=== PATIENT | female | born 1990 ===

== ENCOUNTER 2017-07-16 22:30 | Emergency (ER) | payer MEDICAID ==
--- NOTE | 2017-07-16 22:51 | ED PDOC ---
HPI: General Adult Time Seen by Provider: 07/16/17 22:49 Chief Complaint (Nursing): Flu-like Symptoms Chief Complaint (Provider): sore throat/bodyaches History Per: Patient (27 y/o female here with sore throat/bodyaches x 2 days. Denies any vomiting/diarrhea/fevers/chills. No ill contacts. No OTC medications prior to ED visit today.) Past Medical History Reviewed: Historical Data, Nursing Documentation, Vital Signs Vital Signs: Last Vital Signs Temp 98.5 F 07/16/17 22:38 Pulse 101 H 07/16/17 22:38 Resp 16 07/16/17 22:38 BP 135/82 07/16/17 22:38 Pulse Ox 98 07/16/17 22:51 - Medical History PMH: Denies: HIV - Family History Family History: States: No Known Family Hx - Home Medications Home Medications: Ambulatory Orders Medication Instructions Recorded Amoxicillin/Clavulanate [Augmentin 1 tab PO BID #20 tab 05/26/14 875 MG-125 MG] Ibuprofen [Motrin] 600 mg PO Q8 PRN #21 tab 07/16/17 Penicillin VK [Penicillin VK Tab] 500 mg PO QID #40 tab 07/16/17 - Allergies Allergies/Adverse Reactions: Allergies Allergy/AdvReac Type Severity Reaction Status Date / Time No Known Allergies Allergy Verified 03/22/14 04:46 Review of Systems ROS Statement: Except As Marked, All Systems Reviewed And Found Negative ENT: Positive for: Throat Pain Physical Exam - Reviewed Nursing Documentation Reviewed: Yes Vital Signs Reviewed: Yes - Physical Exam Appears: Positive for: Well, Non-toxic, No Acute Distress Head Exam: Positive for: ATRAUMATIC, NORMAL INSPECTION, NORMOCEPHALIC Skin: Positive for: Normal Color, Warm, DRY Eye Exam: Positive for: EOMI, Normal appearance, PERRL ENT: Positive for: Normal ENT Inspection Neck: Positive for: Normal, Painless ROM Cardiovascular/Chest: Positive for: Regular Rate, Rhythm Respiratory: Positive for: CNT, Normal Breath Sounds Gastrointestinal/Abdominal: Positive for: Normal Exam, Bowel Sounds, Soft Back: Positive for: Normal Inspection Extremity: Positive for: Normal ROM Neurologic/Psych: Positive for: Alert, Oriented - ECG O2 Sat by Pulse Oximetry: 98 - Progress ED Course And Treament: acetaminophen 975mg x 1 dose rapid strep pos flu a/b neg decadron 10 mg IM Disposition - Clinical Impression Clinical Impression: Strep pharyngitis - Patient ED Disposition Is Patient to be Admitted: No - Disposition Referrals: [facility] [Outside] Disposition: Routine/Home Disposition Time: 23:22 Condition: FAIR Prescriptions: Ibuprofen [Motrin] 600 mg PO Q8 PRN #21 tab PRN Reason: Pain, Moderate (4-7) Penicillin VK [Penicillin VK Tab] 500 mg PO QID #40 tab Instructions: Pharyngitis (ED) Forms: [facility] (Anguillan), [facility] ED School/Work Excuse
[2017-07-16 23:43] VITALS: BP 122/80; PULSE 90; RESP 18; TEMP 98.6; O2SAT 99
== END 2017-07-16 23:44 | disposition home or self-care (01) ==
LOC: H.ER 22:30
DX: J02.0 Streptococcal pharyngitis (principal)
CPT/HCPCS: 87430; 87804; 96372; 99281; J1100

== ENCOUNTER 2018-05-07 13:51 | Emergency (ER) | payer MEDICAID ==
[2018-05-07 13:57] VITALS: RESP 18; TEMP 98.7; O2SAT 99
[2018-05-07] MEDS ORDERED: Dexamethasone 4 mg/1 ml IM STA (14:28)
--- NOTE | 2018-05-07 15:05 | ED PDOC ---
HPI: CCC, URI, Sore Throat Time Seen by Provider: 05/07/18 14:01 Chief Complaint (Nursing): ENT Problem Chief Complaint (Provider): ENT Problem History Per: Patient History/Exam Limitations: no limitations Have you had recent travel within the past 21 days to any of the following countries: [place], [place], [place] or [place]?: No Onset/Duration Of Symptoms: Days (x1 day) Current Symptoms Are (Timing): Still Present Associated Symptoms: Sore Throat. denies: Fever, Chills, Cough, Nausea, Vomiting, Diarrhea Additional Complaint(s): Patient reports body ache, throat pain, and pain with swallowing onset, x1 day ago. Patient took Tylenol this morning but had no relief of symptoms. She has no recent travel or sick contact. Otherwise: (-) fever, (-) headache, (-) nausea, (-) vomiting, (-) diarrhea, (-) cough, (-) shortness of breath, (-) abdominal pain, (-) ear pain. PMD: No provider LMP: x3 days ago, Sunday Past Medical History Reviewed: Historical Data, Nursing Documentation, Vital Signs Vital Signs: Last Vital Signs Temp 98.7 F 05/07/18 13:55 Pulse 80 05/07/18 13:55 Resp 18 05/07/18 13:55 BP 131/89 05/07/18 13:55 Pulse Ox 99 05/07/18 13:55 - Medical History PMH: No Chronic Diseases - Surgical History Surgical History: No Surg Hx - Family History Family History: States: Unknown Family Hx - Home Medications Home Medications: Ambulatory Orders Medication Instructions Recorded Amoxicillin/Clavulanate [Augmentin 1 tab PO BID #20 tab 05/26/14 875 MG-125 MG] Ibuprofen [Motrin] 600 mg PO Q8 PRN #21 tab 07/16/17 Penicillin VK [Penicillin VK Tab] 500 mg PO QID #40 tab 07/16/17 Acetaminophen [Acetaminophen 8 650 mg PO Q8 PRN #21 tablet.er 05/07/18 Hour] RX: Amoxicillin 875 mg PO BID #14 tablet 05/07/18 RX: Naproxen 500 mg PO BID PRN #20 tab 05/07/18 - Allergies Allergies/Adverse Reactions: Allergies Allergy/AdvReac Type Severity Reaction Status Date / Time No Known Allergies Allergy Verified 05/07/18 13:55 Review of Systems ROS Statement: Except As Marked, All Systems Reviewed And Found Negative Constitutional: Negative for: Fever, Chills ENT: Positive for: Throat Pain, Other (pain on swallowing). Negative for: Ear Pain Cardiovascular: Negative for: Chest Pain Respiratory: Negative for: Cough, Shortness of Breath Gastrointestinal: Negative for: Nausea, Vomiting, Abdominal Pain, Diarrhea Musculoskeletal: Positive for: Other (body ache) Physical Exam - Reviewed Nursing Documentation Reviewed: Yes Vital Signs Reviewed: Yes - Physical Exam Comments: GENERAL APPEARANCE: Patient is awake, alert, oriented x 3, in no acute distress, non toxic appearing. SKIN: Warm, dry; (-) cyanosis. ENMT: Canals: (-) cerumen impaction. TMs: (-) bulging (-) erythema (-)effusion, (-) perforation,(-) vesicles. Frontal / maxillary sinuses : (-) tenderness. (-) TMJ tenderness. Pharynx: Clear; (+) erythema, (+) exudate bilaterally. (+) 3+ tonsillar hypertrophy. Nares patent, (-) rhinorrhea. Airway patent: (-) stridor. NECK: Supple, FROM (-) stiffness, (-) tenderness, (-) lymphadenopathy. LUNGS: clear to auscultation bilaterally, (-) wheezing, (-) rhonchi (-) rales. CARDIAC: RRR - Laboratory Results Urine POC: Negative - ECG O2 Sat by Pulse Oximetry: 99 (RA) Pulse Ox Interpretation: Normal Medical Decision Making Medical Decision Making: Initial Time: 14:15 Initial Impression: Tonsillitis Initial Plan: -- test --Amoxil 500 mg PO --Decadron 10 mg IM --Toradol 30 mg IM --Throat culture --Rapid strep group A antigen --Influenza A B 1545 Rapid Strep: Positive Influenza: Negative Upreg: negative On re-evaluation, patient reports improvement of symptoms. On exam, patient remains AAOx3, in no acute distress. Lungs clear to auscultation, cardiac RRR, repeat neuro exam shows no focal findings. Vitals stable. Lab/Diagnostic results d/w the patient in great detail. Diagnosis of strep pharyngitis/tonsillitis d/w the patient. Based on history, exam and diagnostic results, plan will be for outpatient follow up. Patient instructed to follow-up with pmd / referral provided / the clinic in 1- 2 days without fail. Advised to take medication as prescribed. Return to the emergency room at any time for any new or worsening symptoms. Patient states she fully agrees with and understands discharge instructions. States that she agrees with the plan and disposition. Verbalized and repeated discharge instructions and plan. I have given the patient opportunity to ask any additional questions. Scribe Attestation: Documented by Uriel White, acting as a scribe for Deisy Mckeon Provider Scribe Attestation: All medical record entries made by the Scribe were at my direction and personally dictated by me. I have reviewed the chart and agree that the record accurately reflects my personal performance of the history, physical exam, medical decision making, and the department course for this patient. I have also personally directed, reviewed, and agree with the discharge instructions and disposition. Disposition - Clinical Impression Clinical Impression: Strep pharyngitis, Tonsillitis with exudate - Patient ED Disposition Is Patient to be Admitted: No Counseled Patient/Family Regarding: Studies Performed, Diagnosis, Need For Followup, Rx Given - Disposition Referrals: [facility] [Outside] Russell Gonsalez MD [Staff Provider] - Disposition: Routine/Home Disposition Time: 15:45 Condition: STABLE Additional Instructions: The emergency medical care you received today was directed at your acute symptoms. If you were prescribed any medication, please fill it and take as directed. It may take several days for your symptoms to resolve. Return to the Emergency Department if your symptoms worsen, do not improve, or if you have any other problems. Please contact your doctor in 2 days for re-evaluation and follow up / or call one of the physicians/clinics you have been referred to that are listed on the Patient Visit Information form that is included in your discharge packet. Bring any paperwork you were given at discharge with you along with any medications you are taking to your follow up visit. Our treatment cannot replace ongoing medical care by a primary care provider (PCP) outside of the emergency department. Prescriptions: Acetaminophen [Acetaminophen 8 Hour] 650 mg PO Q8 PRN #21 tablet.er PRN Reason: Fever >100.4 F RX: Amoxicillin 875 mg PO BID #14 tablet RX: Naproxen 500 mg PO BID PRN #20 tab PRN Reason: Pain, Moderate (4-7) Instructions: Sore Throat in Adults, Strep Throat (DC) Forms: [employer] (Togolese) Print Language: LAO - POA Present On Arrival: None Results - Lab Results Lab Results: 05/07/18 05/07/18 15:02 15:02 Influenza Typ A,B (EIA) Negative for flu a/b Grp A Beta Strep Ag Positive H
[2018-05-07 16:06] VITALS: BP 128/80; PULSE 68
== END 2018-05-07 16:06 | disposition home or self-care (01) ==
LOC: H.ER 13:51
DX: J02.0 Streptococcal pharyngitis (principal); J03.90 Acute tonsillitis, unspecified
CPT/HCPCS: 81025; 87430; 87804; 96372; 99282; J1100; J1885

== ENCOUNTER 2018-07-08 17:26 | Emergency (ER) | payer MEDICAID ==
[2018-07-08] MEDS ORDERED: Sodium Chloride 0.9% 1,000 ML IV STA (18:26)
--- NOTE | 2018-07-08 18:29 | ED PDOC ---
HPI: Abdomen Time Seen by Provider: 07/08/18 18:00 Chief Complaint (Nursing): Abdominal Pain Chief Complaint (Provider): Abd pain History Per: Patient History/Exam Limitations: no limitations Onset/Duration Of Symptoms: Days (today) Additional Complaint(s): Pt. with abd pain R side and right back upper. No dysuria, weakness, nausea, vomit, diarrhea, hematuria, numbness, tingles, leg pain. Past Medical History Reviewed: Nursing Documentation, Vital Signs Vital Signs: Last Vital Signs Temp 98.3 F 07/08/18 17:37 Pulse 82 07/08/18 17:37 Resp 18 07/08/18 17:37 BP 124/87 07/08/18 17:37 Pulse Ox 100 07/08/18 17:37 - Medical History PMH: No Chronic Diseases Denies: HIV - Surgical History Surgical History: No Surg Hx - Family History Family History: States: Unknown Family Hx - Home Medications Home Medications: Ambulatory Orders Medication Instructions Recorded Amoxicillin/Clavulanate [Augmentin 1 tab PO BID #20 tab 05/26/14 875 MG-125 MG] Ibuprofen [Motrin] 600 mg PO Q8 PRN #21 tab 07/16/17 Penicillin VK [Penicillin VK Tab] 500 mg PO QID #40 tab 07/16/17 Acetaminophen [Acetaminophen 8 650 mg PO Q8 PRN #21 tablet.er 05/07/18 Hour] Amoxicillin 875 mg PO BID #14 tablet 05/07/18 Naproxen 500 mg PO BID PRN #20 tab 05/07/18 - Allergies Allergies/Adverse Reactions: Allergies Allergy/AdvReac Type Severity Reaction Status Date / Time No Known Allergies Allergy Verified 07/08/18 17:47 Review of Systems ROS Statement: Except As Marked, All Systems Reviewed And Found Negative Gastrointestinal: Positive for: Abdominal Pain Musculoskeletal: Positive for: Back Pain Physical Exam - Reviewed Nursing Documentation Reviewed: Yes Vital Signs Reviewed: Yes - Physical Exam Appears: Positive for: Non-toxic, No Acute Distress Head Exam: Positive for: ATRAUMATIC, NORMAL INSPECTION, NORMOCEPHALIC Skin: Positive for: Normal Color, Warm, DRY Eye Exam: Positive for: EOMI, Normal appearance, PERRL ENT: Positive for: Normal ENT Inspection Neck: Positive for: Normal, Painless ROM, Supple Cardiovascular/Chest: Positive for: Regular Rate, Rhythm Respiratory: Positive for: CNT, Normal Breath Sounds Gastrointestinal/Abdominal: Positive for: Soft, Tenderness (R lateral upper abd) Back: Positive for: R CVA Tenderness Extremity: Positive for: Normal ROM Neurologic/Psych: Positive for: Alert, Oriented - ECG O2 Sat by Pulse Oximetry: 100 Pulse Ox Interpretation: Normal - Progress ED Course And Treament: 1828: Stable. Dr. Sanchez to take over care. Disposition - Clinical Impression Clinical Impression: Abdominal pain - Patient ED Disposition Is Patient to be Admitted: Transfer of Care - Disposition Disposition Time: 18:29 Condition: STABLE Patient Signed Over To: Jerome Sanchez
--- NOTE | 2018-07-08 19:07 | ED PDOC ---
- Laboratory Results Result Diagrams: 07/08/18 18:40 07/08/18 18:40 - ECG O2 Sat by Pulse Oximetry: 100 (RA) Pulse Ox Interpretation: Normal Medical Decision Making Medical Decision Making: Time: 1899 -- Patient endorsed to me by Dr. Apodaca, pending blood work, CT and urinalysis. Time: 1917 CT RESULTS FINDINGS: LUNG BASES: The lung bases appear clear. No pleural effusions are seen. LIVER: Unremarkable. GALLBLADDER AND BILE DUCTS: The gallbladder appears within normal limits. No radioopaque gallstones are seen. No biliary ductal dilatation is evident. PANCREAS: Unremarkable. SPLEEN: Unremarkable. ADRENAL GLANDS: Unremarkable. KIDNEYS, URETERS, AND BLADDER: Punctate non-obstructing calculus is present in the mid pole of the left kidney. STOMACH AND BOWEL: Unremarkable appearance of the stomach and bowel. No evidence of bowel obstruction. No evidence suggesting enteritis or colitis. APPENDIX: No evidence of acute appendicitis on CT examination. PERITONEUM: No free fluid. No free air. LYMPH NODES: No lymphadenopathy is evident. REPRODUCTIVE: Unremarkable as visualized. VASCULATURE: No evidence of abdominal aortic aneurysm. BONES: No aggressive appearing osseous lesion. No acute osseous pathology evident. MISCELLANEOUS: Small fat-containing umbilical hernia is noted. IMPRESSION: 1. Punctate non-obstructing calculus is present in the mid pole of the left kidney. 2. Small fat-containing umbilical hernia is noted. Electronically signed on Jul 08, 2018 7:18:46 PM EST by: Tirso Malone M.D., LORRIE Certified By [employer] [facility] Fellowship Trained MRI and CT Specialist Time: 2021 -- Labs demonstrate no clinically significant abnormalities. Time: 2107 -- Discussed with patient CT findings and lab results. pt states she feels improved. Patient is stable for discharge home. UA shows UTI, will give po abx. Return precautions given. Scribe Attestation: Documented by Alyssa Mccloud, acting as a scribe for Jerome Sanchez MD. Provider Scribe Attestation: All medical record entries made by the Scribe were at my direction and personally dictated by me. I have reviewed the chart and agree that the record accurately reflects my personal performance of the history, physical exam, medical decision making, and the department course for this patient. I have also personally directed, reviewed, and agree with the discharge instructions and disposition. Disposition Counseled Patient/Family Regarding: Studies Performed, Diagnosis, Rx Given - Clinical Impression Clinical Impression: Abdominal pain, UTI (urinary tract infection) - POA Present On Arrival: None - Disposition Disposition: Routine/Home Disposition Time: 21:08 Condition: IMPROVED Additional Instructions: follow up with your doctor in clinic return to the ED with any worsening or concerning symptoms Prescriptions: Nitrofurantoin Macrocrystals [Macrobid] 100 mg PO BID #14 cap Instructions: Urinary Tract Infections in Adults Forms: [facility] (Persian)
[2018-07-08 19:53] LABS: SQUAMOUS EPITHIAL 13 /hpf (0-5); URINE AMORPHOUS SEDIMENT OCC /ul (<OCC); URINE BACTERIA RARE (<OCC); URINE BILIRUBIN NEGATIVE (NEGATIVE); URINE BLOOD NEGATIVE (NEGATIVE); URINE CLARITY CLOUDY (Clear); URINE COLOR YELLOW (YELLOW); URINE GLUCOSE (UA) NEG (NEGATIVE); URINE LEUKOCYTE ESTERASE SMALL Leu/uL (Negative); URINE PROTEIN 30 mg/dL (NEGATIVE)
[2018-07-08 19:58] LABS: BASO # 0.1 K/uL (0.0-0.2); BASO % 0.7 % (0.0-2.0); EOS # 0.1 K/uL (0.0-0.7); EOS % 1.5 % (0.0-4.0); HEMOGLOBIN 15.2 g/dL (12.0-16.0); LYMPH # 3.1 K/uL (1.0-4.3); LYMPH % 35.7 % (20.0-40.0); MEAN CELL VOLUME 94.6 fl (81.0-99.0); MEAN CORPUSCULAR HEMOGLOBIN 32.9 pg (27.0-31.0); MEAN CORPUSCULAR HGB CONC 34.8 g/dL (33.0-37.0); MEAN PLATELET VOLUME 8.7 fl (7.2-11.7); MONO # 0.5 K/uL (0.0-0.8); MONO % 6.4 % (0.0-10.0); NEUT # 4.8 K/uL (1.8-7.0); NEUT % 55.7 % (50.0-75.0); NRBC % 0.1 % (0.0-0.0); RBC 4.62 Mil/uL (3.80-5.20); RED CELL DISTRIBUTION WIDTH 12.6 % (11.5-14.5); WHITE BLOOD COUNT 8.6 K/uL (4.8-10.8)
[2018-07-08 20:04] LABS: ALB/GLOB RATIO 1.2 (1.0-2.1); ALBUMIN 4.7 g/dL (3.5-5.0); BLOOD UREA NITROGEN 11 mg/dl (7-17); CALCIUM 9.2 mg/dL (8.4-10.2); GFR NON-AFRICAN AMERICAN > 60; LIPASE 179 U/L (23-300)
[2018-07-08 20:19] LABS: ALT/SGPT 30 U/L (9-52); AST/SGOT 39 U/L (14-36)
[2018-07-08 21:34] VITALS: BP 122/80; PULSE 76; RESP 16; TEMP 97.9
--- NOTE | 2018-07-09 15:10 | CT ---
Date of service: 07/08/2018 PROCEDURE: CT Abdomen and Pelvis . HISTORY: R/O stone COMPARISON: None. TECHNIQUE: Contiguous axial images of the abdomen and pelvis without oral or intravenous contrast material. Additional 2D sagittal and coronal reformats generated. Radiation dose: Total exam DLP = 543.7 mGy-cm. This CT exam was performed using one or more of the following dose reduction techniques: Automated exposure control, adjustment of the mA and/or kV according to patient size, and/or use of iterative reconstruction technique. FINDINGS: LOWER THORAX: Unremarkable. LIVER: Unremarkable. No gross lesion or ductal dilatation. GALLBLADDER AND BILE DUCTS: Unremarkable. PANCREAS: Unremarkable. No mass. No ductal dilatation. SPLEEN: Unremarkable. No splenomegaly. ADRENALS: Unremarkable. KIDNEYS AND URETERS: Kidneys demonstrate relatively symmetric size. There appear to be at least 3 very tiny calculi seen lower pole collecting system left kidney. No evidence of hydronephrosis. BLADDER: Urinary bladder incompletely distended which may in part account for thick-walled appearance. Correlation with urinalysis to exclude cystitis. REPRODUCTIVE: Prominent left ovarian follicle or tiny ovarian cyst felt be present... APPENDIX: Normal appendix BOWEL: Evaluation of the bowel is somewhat limited due to the lack of oral contrast material. Stomach is incompletely distended which presumably accounts for slight thick-walled appearance. Visualized loops of small bowel exhibit normal contour and caliber. No evidence of acute mechanical small bowel obstruction. Stool and air seen throughout the large bowel. Diverticulosis without radiographic evidence of acute diverticulitis. PERITONEUM: Unremarkable. No fluid collection. No free air. Small fat containing umbilical hernia. The LYMPH NODES: Unremarkable. No enlarged lymph nodes. VASCULATURE: Unremarkable. No aortic aneurysm. No aortic atherosclerotic calcification or mural plaque present. BONES: No fracture or destructive lesion. OTHER FINDINGS: None. IMPRESSION: There appear to be at least 3 tiny nonobstructing calculi seen with no evidence of hydronephrosis. Prominent left ovarian follicle or tiny ovarian cyst felt be present...
[2018-07-10 02:16] VITALS: O2SAT 100
== END 2018-07-08 21:34 | disposition home or self-care (01) ==
LOC: H.ER 17:26
DX: R10.9 Unspecified abdominal pain (principal); N39.0 Urinary tract infection, site not specified
CPT/HCPCS: 74176; 80053; 81003; 81025; 83690; 85025; 96374; 99284; J1885; J7030

== ENCOUNTER 2018-08-20 14:07 | Emergency (ER) | payer MEDICAID ==
--- NOTE | 2018-08-20 14:48 | ED PDOC ---
HPI: Skin/Bite Injury Time Seen by Provider: 08/20/18 14:30 Chief Complaint (Nursing): Abnormal Skin Integrity Chief Complaint (Provider): Sunburn History Per: Patient History/Exam Limitations: no limitations Onset/Duration Of Symptoms: Days (x1) Current Symptoms Are (Timing): Still Present Additional Complaint(s): 28 year old female presents to the ED for evaluation of sunburn to her face and shoulders s/p a trip to [place] which she returned from yesterday. Patient reports while she was there, she did not use sunblock. Denies other complaints. LMP: currently PMD: Chavo Godoy Past Medical History Reviewed: Historical Data, Nursing Documentation, Vital Signs Vital Signs: Last Vital Signs Temp 98.6 F 08/20/18 14:26 Pulse 79 08/20/18 14:26 Resp 16 08/20/18 14:26 BP 134/88 08/20/18 14:26 Pulse Ox 99 08/20/18 14:26 - Medical History PMH: No Chronic Diseases - Surgical History Surgical History: No Surg Hx - Family History Family History: States: Unknown Family Hx - Social History Current smoker - smoking cessation education provided: No - Home Medications Home Medications: Ambulatory Orders Medication Instructions Recorded Amoxicillin/Clavulanate [Augmentin 1 tab PO BID #20 tab 05/26/14 875 MG-125 MG] Ibuprofen [Motrin] 600 mg PO Q8 PRN #21 tab 07/16/17 Penicillin VK [Penicillin VK Tab] 500 mg PO QID #40 tab 07/16/17 Acetaminophen [Acetaminophen 8 650 mg PO Q8 PRN #21 tablet.er 05/07/18 Hour] RX: Amoxicillin 875 mg PO BID #14 tablet 05/07/18 RX: Naproxen 500 mg PO BID PRN #20 tab 05/07/18 Nitrofurantoin Macrocrystals 100 mg PO BID #14 cap 07/08/18 [Macrobid] RX: Naproxen 500 mg PO BID PRN #20 tab 08/20/18 - Allergies Allergies/Adverse Reactions: Allergies Allergy/AdvReac Type Severity Reaction Status Date / Time No Known Allergies Allergy Verified 08/20/18 14:26 Review of Systems ROS Statement: Except As Marked, All Systems Reviewed And Found Negative Skin: Positive for: Other (sunburn to face and shoulders) Physical Exam - Reviewed Nursing Documentation Reviewed: Yes Vital Signs Reviewed: Yes - Physical Exam Comments: GENERAL APPEARANCE: Patient is awake, alert, oriented x 3, in no acute distress. Resting comfortably, on cell phone. SKIN: Diffuse erythema to upper torso, shoulders, face, and neck. Otherwise (-) blisters (-) excoriations, (-) drainage, (-) lesions, (-) skin break (-) facial edema or blisters HENT: (-) conjunctival injection. Mucous membranes moist. Airway patent (-) stridor. NECK: Supple, FROM CARDIOVASCULAR: Normal rate and rhythm CHEST: (-) rales, (-) wheezing, (-) dyspnea, (-) stridor. Breath sounds equal bilaterally. NEURO: Mental status as above. Gait: steady. Speech: clear. (-) facial asymmetry - ECG O2 Sat by Pulse Oximetry: 99 (RA) Pulse Ox Interpretation: Normal Medical Decision Making Medical Decision Making: Initial Impression: first degree sunburn Time: 1445 Initial Plan: --Patient advised to continue use of aloe vera at home and will be discharged with anti-inflammatory meds. Vitals stable. Based on history, exam and diagnostic results, plan will be for outpatient follow up. Patient instructed to follow-up with pmd / referral provided / the clinic in 1- 2 days without fail. Advised to take medication as prescribed. Return to the emergency room at any time for any new or worsening symptoms. Patient states she fully agrees with and understands discharge instructions. States that she agrees with the plan and disposition. Verbalized and repeated discharge instructions and plan. I have given the patient opportunity to ask any additional questions. Scribe Attestation: Documented by Lo Nieves, acting as a scribe for Deisy Campa PA-C. Provider Scribe Attestation: All medical record entries made by the Scribe were at my direction and personally dictated by me. I have reviewed the chart and agree that the record accurately reflects my personal performance of the history, physical exam, medical decision making, and the department course for this patient. I have also personally directed, reviewed, and agree with the discharge instructions and disposition. Disposition - Clinical Impression Clinical Impression: Sunburn of first degree - Patient ED Disposition Is Patient to be Admitted: No Counseled Patient/Family Regarding: Studies Performed, Diagnosis, Need For Followup, Rx Given - Disposition Referrals: Chavo Godoy MD [Family Provider] - Disposition: Routine/Home Disposition Time: 14:50 Condition: STABLE Additional Instructions: The emergency medical care you received today was directed at your acute symptoms. If you were prescribed any medication, please fill it and take as directed. It may take several days for your symptoms to resolve. Return to the Emergency Department if your symptoms worsen, do not improve, or if you have any other problems. Please contact your doctor in 2 days for re-evaluation and follow up / or call one of the physicians/clinics you have been referred to that are listed on the Patient Visit Information form that is included in your discharge packet. Bring any paperwork you were given at discharge with you along with any medications y ou are taking to your follow up visit. Our treatment cannot replace ongoing medical care by a primary care provider (PCP) outside of the emergency department. Prescriptions: RX: Naproxen 500 mg PO BID PRN #20 tab PRN Reason: Pain, Moderate (4-7) Instructions: Sunburn Forms: [employer] [facility] (Yoruba) Print Language: SCOTTISH - POA Present On Arrival: None
[2018-08-20] MEDS: Naproxen 500 MG TAB PO STA (15:25)
[2018-08-20] MEDS ORDERED: Naproxen 500 MG TAB PO ONE (15:26)
[2018-08-20 15:48] VITALS: BP 130/78; PULSE 76; RESP 18; TEMP 98.1
[2018-08-23 13:35] VITALS: O2SAT 99
== END 2018-08-20 15:47 | disposition home or self-care (01) ==
LOC: H.ER 14:07
DX: L55.0 Sunburn of first degree (principal)

== ENCOUNTER 2018-10-23 19:45 | Emergency (ER) | payer SELFPAY ==
[2018-10-23 20:26] VITALS: BP 132/90; PULSE 75; RESP 16; TEMP 98; O2SAT 100
--- NOTE | 2018-10-23 21:36 | ED PDOC ---
HPI: General Adult Time Seen by Provider: 10/23/18 21:30 Chief Complaint (Nursing): Abnormal Skin Integrity Chief Complaint (Provider): Abnormal Skin Integrity History Per: Patient History/Exam Limitations: no limitations Onset/Duration Of Symptoms: Days (x3) Current Symptoms Are (Timing): Still Present Additional Complaint(s): Patient is a 28 y/o female with no significant PMHx who presents to the ED for evaluation of blisters to the right ankle and left thumb onset three days ago. Patient was walking in [place] when she developed itchiness to her ankle and hand which has now become blisters. Patient denies fever and chills. PCP: Dr. Chavo Godoy Past Medical History Reviewed: Historical Data, Nursing Documentation, Vital Signs Vital Signs: Last Vital Signs Temp 98.0 F 10/23/18 20:24 Pulse 75 10/23/18 20:24 Resp 16 10/23/18 20:24 BP 132/90 10/23/18 20:24 Pulse Ox 100 10/23/18 20:24 - Medical History PMH: No Chronic Diseases Denies: HIV - Surgical History Surgical History: No Surg Hx - Family History Family History: States: Unknown Family Hx - Home Medications Home Medications: Ambulatory Orders Medication Instructions Recorded Amoxicillin/Clavulanate [Augmentin 1 tab PO BID #20 tab 05/26/14 875 MG-125 MG] Ibuprofen [Motrin] 600 mg PO Q8 PRN #21 tab 07/16/17 Penicillin VK [Penicillin VK Tab] 500 mg PO QID #40 tab 07/16/17 Acetaminophen [Acetaminophen 8 650 mg PO Q8 PRN #21 tablet.er 05/07/18 Hour] Amoxicillin 875 mg PO BID #14 tablet 05/07/18 Naproxen 500 mg PO BID PRN #20 tab 05/07/18 Nitrofurantoin Macrocrystals 100 mg PO BID #14 cap 07/08/18 [Macrobid] Naproxen 500 mg PO BID PRN #20 tab 08/20/18 Clindamycin [Cleocin] 1 tab PO QID #28 cap 10/23/18 DiphenhydrAMINE [Benadryl] 50 mg PO Q6 PRN #24 cap 10/23/18 - Allergies Allergies/Adverse Reactions: Allergies Allergy/AdvReac Type Severity Reaction Status Date / Time No Known Allergies Allergy Verified 10/23/18 20:24 Review of Systems ROS Statement: Except As Marked, All Systems Reviewed And Found Negative Constitutional: Negative for: Fever, Chills Musculoskeletal: Positive for: Other (blisters to left thumb and right ankle) Physical Exam - Reviewed Nursing Documentation Reviewed: Yes Vital Signs Reviewed: Yes - Physical Exam Appears: Positive for: No Acute Distress Head Exam: Positive for: ATRAUMATIC, NORMAL INSPECTION, NORMOCEPHALIC Skin: Positive for: Normal Color, Warm, DRY Eye Exam: Positive for: EOMI, Normal appearance, PERRL Neck: Positive for: Normal, Painless ROM, Supple Cardiovascular/Chest: Positive for: Regular Rate, Rhythm. Negative for: Murmur Respiratory: Positive for: Normal Breath Sounds. Negative for: Respiratory Distress Extremity: Positive for: Normal ROM, Other (2 cm blister filled with purulent discharge with surrounding erythema to interior medial aspect of right ankle; 1 cm blister with no surrounding erythema to dorsum of left thumb). Negative for: Pedal Edema, Deformity Neurological/Psych: Positive for: Alert, Oriented (x3) - ECG O2 Sat by Pulse Oximetry: 100 (RA) Pulse Ox Interpretation: Normal - Progress ED Course And Treament: d/w Dr. Christie. Medical Decision Making Medical Decision Making: Time: 2134 Impression: Right Ankle and Left Thumb Blisters Scribe Attestation: Documented by Rodney Mijares, acting as a scribe for Dee Stewart PA-C. Provider Scribe Attestation: All medical record entries made by the Scribe were at my direction and personally dictated by me. I have reviewed the chart and agree that the record accurately reflects my personal performance of the history, physical exam, medical decision making, and the department course for this patient. I have also personally directed, reviewed, and agree with the discharge instructions and disposition. Disposition - Clinical Impression Clinical Impression: Anahi alarcon Cellulitis - Patient ED Disposition Is Patient to be Admitted: No - Disposition Disposition: Routine/Home Disposition Time: 21:35 Condition: FAIR Prescriptions: Clindamycin [Cleocin] 1 tab PO QID #28 cap DiphenhydrAMINE [Benadryl] 50 mg PO Q6 PRN #24 cap PRN Reason: Itching / Pruritus Instructions: Poison Adriana, Cellulitis (Skin Infection), Adult (DC)
== END 2018-10-23 22:12 | disposition home or self-care (01) ==
LOC: H.ER 19:45
DX: L23.7 Allergic contact dermatitis due to plants, except food (principal); L03.90 Cellulitis, unspecified